=== PATIENT | female | born 1960 | race Native Hawaiian/Other Pacific Islander ===

== ENCOUNTER 2016-09-05 16:42 | Emergency (ER) | payer SELFPAY ==
[2016-09-05 16:49] VITALS: TEMP 97.4; O2SAT 100
[2016-09-05 17:06] VITALS: RESP 18
[2016-09-05] MEDS ORDERED: Sodium Chloride 0.9% 1,000 ML IV STA (17:48)
[2016-09-05 18:32] VITALS: BP 167/82; PULSE 59
[2016-09-05 18:52] LABS: BASO % 0.6 % (0.0-2.0); EOS # 0.1 K/uL (0.0-0.7); EOS % 1.8 % (0.0-4.0); HEMATOCRIT 39.4 % (34.0-47.0); LYMPH # 1.7 K/uL (1.0-4.3); LYMPH % 34.7 % (20.0-40.0); MEAN CELL VOLUME 91.8 fl (81.0-99.0); MEAN CORPUSCULAR HEMOGLOBIN 30.2 pg (27.0-31.0); MEAN CORPUSCULAR HGB CONC 32.9 g/dL (33.0-37.0); MEAN PLATELET VOLUME 9.5 fl (7.2-11.7); MONO # 0.4 K/uL (0.0-0.8); NEUT # 2.6 K/uL (1.8-7.0); NEUT % 53.9 % (50.0-75.0); RED CELL DISTRIBUTION WIDTH 13.5 % (11.5-14.5); WHITE BLOOD COUNT 4.9 K/uL (4.8-10.8)
--- NOTE | 2016-09-05 19:02 | ED PDOC ---
HPI: Headache Time Seen by Provider: 09/05/16 18:13 Chief Complaint (Nursing): Headache Chief Complaint (Provider): SUNG History Per: Patient History/Exam Limitations: no limitations Additional Complaint(s): 56yo F in ED for elevated BP-states diastolic is over 100 at home. states she has been taking her BP medication, has a hx of high cholesterol, D, hyperthyroidism. Pt states that she is having a mild tension SUNG some dizziness and nausea with epigastric pain that is now resolving. Pt denies CP, SOB, tingling in extremities. denies vision changes diaphoresis, or back pain. Past Medical History Reviewed: Historical Data, Nursing Documentation, Vital Signs Vital Signs: Last Vital Signs Temp 97.4 F L 09/05/16 16:46 Pulse 59 L 09/05/16 18:31 Resp 18 09/05/16 18:31 BP 167/82 H 09/05/16 18:31 Pulse Ox 100 09/05/16 16:46 - Medical History PMH: HTN, Chronic Kidney Disease (Kidney transplant) - Family History Family History: States: No Known Family Hx - Home Medications Home Medications: Ambulatory Orders Medication Instructions Recorded Alfacalcidol 1 mcg PO DAILY 09/05/16 Calcium Carbonate [Caltrate] 600 mg PO BID 09/05/16 Lercadip 10 mg PO DAILY 09/05/16 Levothyroxine [Synthroid] 175 mcg PO DAILY 09/05/16 Levothyroxine [Synthroid] 175 mcg PO DAILY #30 tab 09/05/16 Magnesium Oxide [Magox 400] 400 mg PO BID 09/05/16 Metoprolol Tartrate [Lopressor] 100 mg PO BID 09/05/16 Mycophenolate Sodium [Myfortic] 360 mg PO BID 09/05/16 Mycophenolate Sodium [Myfortic] 360 mg PO BID #60 ect 09/05/16 Omeprazole [Omeprazole] 20 mg PO BID 09/05/16 Prazosin HCL [Minipress] 2 mg PO QPM 09/05/16 Prazosin HCL [Minipress] 4 mg PO Q12H 09/05/16 Prednisolone [Millipred] 5 mg PO Q48H 09/05/16 SITagliptin [Januvia] 100 mg PO DAILY 09/05/16 Simvastatin [Zocor] 20 mg PO HS 09/05/16 Tacrolimus [Prograf Cap] 2 mg PO BID 09/05/16 - Allergies Allergies/Adverse Reactions: Allergies Allergy/AdvReac Type Severity Reaction Status Date / Time No Known Allergies Allergy Verified 09/05/16 17:04 Review of Systems ROS Statement: Except As Marked, All Systems Reviewed And Found Negative Constitutional: Negative for: Fever, Chills Cardiovascular: Negative for: Chest Pain, Palpitations Respiratory: Negative for: Cough, Shortness of Breath Gastrointestinal: Positive for: Nausea, Abdominal Pain Neurological: Positive for: Headache, Dizziness Physical Exam - Reviewed Nursing Documentation Reviewed: Yes Vital Signs Reviewed: Yes - Physical Exam Appears: Positive for: Well, Non-toxic, No Acute Distress Head Exam: Positive for: ATRAUMATIC, NORMAL INSPECTION, NORMOCEPHALIC Skin: Positive for: Normal Color, Warm, DRY Neck: Positive for: Normal, Painless ROM Cardiovascular/Chest: Positive for: Regular Rate, Rhythm Respiratory: Positive for: CNT, Normal Breath Sounds Gastrointestinal/Abdominal: Positive for: Bowel Sounds, Soft, Tenderness ( epigastric pain) Back: Positive for: Normal Inspection Extremity: Positive for: Normal ROM Neurologic/Psych: Positive for: Alert, Oriented - Laboratory Results Result Diagrams: 09/05/16 18:25 09/05/16 18:25 - ECG ECG: Positive for: Interpreted By Me ECG Rhythm: Positive for: Normal QRS, Sinus Rhythm, ST/T Changes O2 Sat by Pulse Oximetry: 100 - Radiology X-Ray: Interpreted by Me X-Ray Interpretation: No Acute Disease - Progress ED Course And Treament: pt will get cbc/cmp/EKG/chest xray PT is refusing IV fluids, hep lock will accept PO pepcid and at this time just wants labs work to r/o cardiac issues. Medical Decision Making Medical Decision Making: pt bp has been stable in ED. PT doenst not want any BP medication at this time nor fluids. Pt will f/u with with [facility] Pt is requesting a refill: myfortic 360mg and eltroxin 175mg Disposition - Clinical Impression Clinical Impression: Hypertension - Patient ED Disposition Is Patient to be Admitted: No Counseled Patient/Family Regarding: Studies Performed, Diagnosis, Need For Followup, Rx Given - Disposition Referrals: [facility] [Outside] [facility] [Outside] Disposition: Routine/Home Disposition Time: 19:54 Condition: STABLE Prescriptions: Levothyroxine [Synthroid] 175 mcg PO DAILY #30 tab Mycophenolate Sodium [Myfortic] 360 mg PO BID #60 ect Instructions: Hypertension (ED)
[2016-09-05 19:07] LABS: ALB/GLOB RATIO 1.6 (1.0-2.1); BILIRUBIN,TOTAL 0.5 mg/dl (0.2-1.3); CALCIUM 9.7 mg/dL (8.4-10.2); POTASSIUM 4.6 MMOL/L (3.6-5.0); TOTAL PROTEIN 7.6 G/DL (6.3-8.2)
--- NOTE | 2016-09-06 08:35 | RAD ---
PROCEDURE: CHEST RADIOGRAPH, 1 VIEW HISTORY: epigastric pain HTN COMPARISON: None available. FINDINGS: LUNGS: Clear. PLEURA: No pneumothorax or pleural fluid seen. CARDIOVASCULAR: Normal. OSSEOUS STRUCTURES: No significant abnormalities. VISUALIZED UPPER ABDOMEN: Normal. OTHER FINDINGS: None. IMPRESSION: No evidence of acute pulmonary disease.
--- NOTE | 2016-09-06 19:17 | CARD ---
APPROVED REPORT EKG Measurement Heart [id number] <Conclusion> Sinus bradycardia Possible Left atrial enlargement Left ventricular hypertrophy Nonspecific T wave abnormality Abnormal ECG
== END 2016-09-05 20:04 | disposition home or self-care (01) ==
LOC: H.ER 16:42
DX: I10 Essential (primary) hypertension (principal); N18.9 Chronic kidney disease, unspecified; Z94.0 Kidney transplant status

== ENCOUNTER 2016-09-05 23:59 | Emergency (ER) | payer SELFPAY ==
[2016-09-06 00:08] VITALS: TEMP 98.3
[2016-09-06 01:25] LABS: BASO % 0.9 % (0.0-2.0); EOS # 0.1 K/uL (0.0-0.7); EOS % 2.7 % (0.0-4.0); HEMATOCRIT 37.3 % (34.0-47.0); LYMPH # 1.6 K/uL (1.0-4.3); LYMPH % 32.8 % (20.0-40.0); MEAN CORPUSCULAR HEMOGLOBIN 30.7 pg (27.0-31.0); MEAN PLATELET VOLUME 9.6 fl (7.2-11.7); MONO # 0.4 K/uL (0.0-0.8); MONO % 8.5 % (0.0-10.0); NEUT # 2.7 K/uL (1.8-7.0); NEUT % 55.1 % (50.0-75.0); RED CELL DISTRIBUTION WIDTH 13.4 % (11.5-14.5)
[2016-09-06 01:28] VITALS: BP 156/88; PULSE 55; RESP 14; O2SAT 99
[2016-09-06 01:34] LABS: RBC URINE < 1 /hpf (0-3); URINE BACTERIA RARE (<OCC); URINE BILIRUBIN NEGATIVE (NEGATIVE); URINE BLOOD NEGATIVE (NEGATIVE); URINE COLOR STRAW (YELLOW); URINE GLUCOSE (UA) NEG (Normal); URINE KETONE NEGATIVE (NEGATIVE); URINE LEUKOCYTE ESTERASE NEG Leu/uL (Negative); URINE PROTEIN NEGATIVE (NEGATIVE); URINE UROBILINOGEN 0.2-1.0 mg/dL (0.2-1.0)
[2016-09-06 01:37] LABS: ALB/GLOB RATIO 1.7 (1.0-2.1); BILIRUBIN,TOTAL 0.3 mg/dl (0.2-1.3); CALCIUM 9.5 mg/dL (8.4-10.2); POTASSIUM 4.4 MMOL/L (3.6-5.0); TOTAL PROTEIN 6.8 G/DL (6.3-8.2)
--- NOTE | 2016-09-06 01:44 | ED PDOC ---
HPI: Abdomen Time Seen by Provider: 09/06/16 00:10 Chief Complaint (Nursing): Abdominal Pain Chief Complaint (Provider): abd pain History Per: Patient History/Exam Limitations: no limitations Onset/Duration Of Symptoms: Hrs Outside of [place] travel?: Yes Other Location:: [facility] Current Symptoms Are (Timing): Still Present Additional Complaint(s): 56yo female visiting from [facility] with PMHx including HTN, gastritis, renal transplant, appendectomy, ovarian cyst surgery, plastic surgery on her nose, and pre-diabetes presents to the ED with c/o epigastric abdominal pain. Patient was seen earlier in ED and at that time advised to stay for obs but declined. States she was feeling better then but went home and ate spicy food with jalapenos and subsequently developed epigastric pain radiating to her mid back. Denies n/v/d, cough, SOB, chest pain, fever. Pain was 7/10 and now 6/10. Past Medical History Reviewed: Historical Data, Nursing Documentation, Vital Signs Vital Signs: Last Vital Signs Temp 98.3 F 09/06/16 00:04 Pulse 55 L 09/06/16 01:27 Resp 14 09/06/16 01:27 BP 156/88 H 09/06/16 01:27 Pulse Ox 99 09/06/16 01:51 - Medical History PMH: Gastritis, HTN, Chronic Kidney Disease (Kidney transplant) Other PMH: pre-diabetes - Surgical History Surgical History: Appendectomy Other surgeries: renal transplant, ovarian cyst, plastic surgery on nose - Family History Family History: States: No Known Family Hx - Social History Current smoker - smoking cessation education provided: No Alcohol: None Drugs: Denies - Home Medications Home Medications: Ambulatory Orders Medication Instructions Recorded Alfacalcidol 1 mcg PO DAILY 09/05/16 Calcium Carbonate [Caltrate] 600 mg PO BID 09/05/16 Lercadip 10 mg PO DAILY 09/05/16 Levothyroxine [Synthroid] 175 mcg PO DAILY 09/05/16 Levothyroxine [Synthroid] 175 mcg PO DAILY #30 tab 09/05/16 Magnesium Oxide [Magox 400] 400 mg PO BID 09/05/16 Metoprolol Tartrate [Lopressor] 100 mg PO BID 09/05/16 Mycophenolate Sodium [Myfortic] 360 mg PO BID 06/15/17 Mycophenolate Sodium [Myfortic] 360 mg PO BID #60 ect 09/05/16 Omeprazole [Omeprazole] 20 mg PO BID 09/05/16 Prazosin HCL [Minipress] 2 mg PO QPM 09/05/16 Prazosin HCL [Minipress] 4 mg PO Q12H 09/05/16 Prednisolone [Millipred] 5 mg PO Q48H 09/05/16 SITagliptin [Januvia] 100 mg PO DAILY 09/05/16 Simvastatin [Zocor] 20 mg PO HS 09/05/16 Tacrolimus [Prograf Cap] 2 mg PO BID 09/05/16 Dicyclomine [Bentyl] 20 mg PO Q12 PRN #20 tab 09/06/16 - Allergies Allergies/Adverse Reactions: Allergies Allergy/AdvReac Type Severity Reaction Status Date / Time No Known Allergies Allergy Verified 09/05/16 17:04 Review of Systems ROS Statement: Except As Marked, All Systems Reviewed And Found Negative Constitutional: Negative for: Fever Cardiovascular: Negative for: Chest Pain Respiratory: Negative for: Cough, Shortness of Breath Gastrointestinal: Positive for: Abdominal Pain (epigastric ). Negative for: Nausea, Vomiting, Diarrhea Musculoskeletal: Positive for: Back Pain (mid ) Physical Exam - Reviewed Nursing Documentation Reviewed: Yes Vital Signs Reviewed: Yes - Physical Exam Appears: Positive for: Well, No Acute Distress Head Exam: Positive for: ATRAUMATIC, NORMAL INSPECTION, NORMOCEPHALIC Skin: Positive for: Normal Color, Warm, Dry Eye Exam: Positive for: Normal appearance, EOMI, PERRL ENT: Positive for: Normal ENT Inspection Neck: Positive for: Normal, Painless ROM, Supple Cardiovascular/Chest: Positive for: Regular Rate, Rhythm. Negative for: Murmur , Tachycardia Respiratory: Positive for: Normal Breath Sounds. Negative for: Wheezing, Respiratory Distress Gastrointestinal/Abdominal: Positive for: Soft, Tenderness (mild epigastric ). Negative for: Guarding, Rebound Back: Positive for: Normal Inspection. Negative for: L CVA Tenderness, R CVA Tenderness, Vertebral Tenderness Extremity: Positive for: Normal ROM. Negative for: Deformity, Swelling Neurologic/Psych: Positive for: Alert, Oriented - Laboratory Results Result Diagrams: 09/06/16 01:22 09/06/16 01:22 - ECG O2 Sat by Pulse Oximetry: 99 Pulse Ox Interpretation: Normal (RA) Medical Decision Making Medical Decision Makin: Impression: 56yo female w recurrent epigastric pain in setting of known h/o gastritis Plan: EKG Labs Bentyl 20mg PO, Protonix 80mg IV, IVF US abdomen reassess 0234: US abdomen impression: Limited evaluation of the pancreas, secondary to overlying bowel gas. Fatty infiltration of an enlarged liver. No cholelithiasis. Borderline splenomegaly. Normal transplanted kidney within the right lower quadrant. 0250: Labs reviewed, show no clinically significant abnormalities. Patient reports pain has resolved and she is stable for discharge. Dx: gastritis Patient advised to keep blood pressure log States she will follow-up in the clinic or in [place] when she is there in 2 weeks Scribe Attestation: Documented by Rishi Castillo acting as a scribe for Benny Woodard MD. Provider Scribe Attestation: All medical record entries made by the Scribe were at my direction and personally dictated by me. I have reviewed the chart and agree that the record accurately reflects my personal performance of the history, physical exam, medical decision making, and the department course for this patient. I have also personally directed, reviewed, and agree with the discharge instructions and disposition. Disposition - Clinical Impression Clinical Impression: Abdominal pain, Gastritis - Patient ED Disposition Is Patient to be Admitted: No Counseled Patient/Family Regarding: Studies Performed, Diagnosis, Need For Followup - Disposition Referrals: [facility] [Outside] Disposition: Routine/Home Disposition Time: 02:50 Condition: STABLE Prescriptions: Dicyclomine [Bentyl] 20 mg PO Q12 PRN #20 tab PRN Reason: abdominal pain Instructions: Gastritis (ED)
--- NOTE | 2016-09-06 02:35 | US ---
EXAM: US Abdomen Complete CLINICAL HISTORY: 56 years old, female; Pain; Abdominal pain; Epigastric; Prior surgery; Surgery date: 6+ months; Surgery type: S/P rlq kidney transplant x 4 yrs; Additional info: Ruq pain TECHNIQUE: Real-time ultrasound of the abdomen (complete) with image documentation. COMPARISON: No relevant prior studies available. FINDINGS: Liver: Increased in echogenicity and size measuring 17 cm in longitudinal dimension. No intrahepatic bile duct dilation. Gallbladder: Contracted, without gallstones. Common bile duct: No stones. No dilation, measuring 4 mm. Pancreas: Visualization of the pancreas is limited by overlying bowel gas. Right kidney: Not visualized. Left Kidney: Not visualized. Spleen: Unremarkable in echogenicity and increased in size, measuring 11 cm in longitudinal dimension. Aorta: Unremarkable. Inferior vena cava: patent. Within the right lower quadrant, is the transplanted kidney measuring 10.3 cm enlarged dimension. No hydronephrosis or renal calculi are detected. IMPRESSION: Limited evaluation of the pancreas, secondary to overlying bowel gas. Fatty infiltration of an enlarged liver. No cholelithiasis. Borderline splenomegaly. Normal transplanted kidney within the right lower quadrant.
--- NOTE | 2016-09-06 12:13 | CARD ---
APPROVED REPORT EKG Measurement Heart [id number] <Conclusion> Sinus bradycardia Voltage criteria for left ventricular hypertrophy T wave abnormality, consider anterior ischemia Abnormal ECG
== END 2016-09-06 03:00 | disposition home or self-care (01) ==
LOC: H.ER 23:59
DX: K29.70 Gastritis, unspecified, without bleeding (principal); Z94.0 Kidney transplant status; I10 Essential (primary) hypertension; N18.9 Chronic kidney disease, unspecified; R73.03 Prediabetes
CPT/HCPCS: 76700; 80053; 81003; 83690; 85025; 93005; 99283; C9113